=== PATIENT | female | born 1975 | race Caucasian/White ===

== ENCOUNTER 2019-03-04 21:34 | Emergency (ER) | payer OTHER ==
[~2019-03-04] VITALS: Ht 160 cm; Wt 67.0 kg
--- NOTE | 2019-03-04 21:46 | NUR ---
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
--- NOTE | 2019-03-04 21:48 | NUR ---
[place], [place], [facility] WERE TRAVEL LOCATIONS
--- NOTE | 2019-03-04 22:16 | NUR ---
PT RECENTLY IN [place] X 2 WEEKS. PT PRESENTS WITH N/V, CONDE, AND CHILLS. PT HAS VIRAL SYMPTOMS GETTING WORSE PROGRESSIVELY OVER PAST FEW DAYS. ISOLATION PRECAUTIONS IN PLACE AND MAINTAINED, MONITORS APPLIED, SIDERAILS UP X2, CALL LIGHT WITHIN REACH
[2019-03-04] MEDS ORDERED: ONDANSETRON 2MG/ML, 2ML ONE (22:20)
[2019-03-04] MEDS ORDERED: KETOROLAC 30 MG/1 ML ONE (22:20)
[2019-03-04] MEDS ORDERED: SODIUM CHLORIDE 0.9% 1,000ML IVBOLUS ONE (22:30)
[2019-03-04] MEDS ORDERED: ONDANSETRON 2MG/ML, 2ML IVPush ONE (22:30)
[2019-03-04] MEDS ORDERED: SODIUM CHLORIDE FLUSH 10ML SYR IVF ONE (22:30)
[2019-03-04] MEDS ORDERED: KETOROLAC 30 MG/1 ML IVPush ONE (22:30)
--- NOTE | 2019-03-04 22:39 | NUR ---
IV SITE STARTED, LABS DRAWN, IV FLUIDS INFUSING, PT MEDICATED PER MAR
[2019-03-04 22:49] LABS: BASOPHILS # (AUTO) 0.02 x10^3/uL (0-0.1); BASOPHILS % (AUTO) 0 % (0-1); EOSINOPHILS # (AUTO) 0.12 x10^3/uL (0-0.4); EOSINOPHILS % (AUTO) 1 % (1-7); LYMPHOCYTES # (AUTO) 0.87 x10^3/uL (1-3.4); LYMPHOCYTES % (AUTO) 9 % (22-44); MD NO; MEAN CORPUSCULAR HEMOGLOBIN 30.7 pg (27.0-34.8); MEAN CORPUSCULAR HGB CONC 33.6 g/dL (32.4-35.8); MEAN CORPUSCULAR VOLUME 91.3 fL (80-100); MEAN PLATELET VOLUME 8.7 fL (7.4-10.4); MONOCYTES # (AUTO) 0.38 x10^3/uL (0.2-0.8); MONOCYTES % (AUTO) 4 % (2-9); NEUTROPHILS # (AUTO) 8.56 x10^3/uL (1.8-6.8); NEUTROPHILS % (AUTO) 86 % (42-75); PLATELET COUNT 212 x10^3/uL (130-400); RED BLOOD COUNT 5.05 x10^6/uL (3.82-5.3); RED CELL DISTRIBUTION WIDTH 12.8 % (9.6-15.2)
[2019-03-04 23:04] LABS: ALANINE AMINOTRANSFERASE 22 U/L (12-78); ALBUMIN 3.8 g/dL (3.4-5.0); ANION GAP 7 mmol/L (5-15); CALCIUM 8.9 mg/dL (8.5-10.1); CHLORIDE 107 mmol/L (98-107); CREATININE 0.75 mg/dL (0.55-1.02)
[2019-03-04 23:06] LABS: ALKALINE PHOSPHATASE 89 U/L (45-117); BILIRUBIN,TOTAL 0.4 mg/dL (0.2-1.0); TOTAL PROTEIN 7.7 g/dL (6.4-8.2)
[2019-03-04] MEDS ORDERED: DULO20CA45 PO (23:11)
[2019-03-04] MEDS ORDERED: GABA-827 PO (23:11)
[2019-03-04 23:49] VITALS: BP 104/64
== END 2019-03-04 23:57 | disposition home or self-care (01) ==
LOC: ED 23:51
DX: R11.2 Nausea with vomiting, unspecified (principal)
CPT/HCPCS: 96361; 96374; 96375; 99283; J1885; J2405; J7030; 36415; 80053; 83690; 85025